=== PATIENT | female | born 1985 | race Native Hawaiian/Other Pacific Islander ===

== ENCOUNTER 2017-04-22 18:02 | Emergency (ER) | payer MEDICAID ==
[2017-04-22] MEDS ORDERED: LIDOCAINE 1%-EPI 1:100000 20 ML MDV SUBQ STA (18:29)
[2017-04-22] MEDS ORDERED: cephALEXin 250 MG CAPSULE PO STA (18:29)
--- NOTE | 2017-04-22 18:30 | ED Physician Documentation ---
History of Present Illness - Stated complaint Stated Complaint: SORE ON THIGH - Chief complaint Chief Complaint: Ext Problem - History obtained from History obtained from: Patient - History of Present Illness Timing: Other (This is a 31-year-old woman with type 2 diabetes, not currently on medications because she is new to the area and does not have a doctor, in the past she was on metformin 1000 mg 3 times a day and Levemir on a sliding scale. 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 : None HEENT: None Psych: None Derm: Other - Past Surgical History /CALCINER OPERATOR: Other - Present Medications Home Medications: Ambulatory Orders Medication Instructions Recorded Confirmed Clindamycin [Cleocin] 300 mg PO Q6H 10 Days capsule 04/22/17 Insulin Detemir [Levemir Flextouch] 1 unit SQ ACHS #1 insuln.pen 04/22/17 Metformin HCl [Metformin HCl ER] 1,000 mg PO TID #90 tab.er.24 04/22/17 - Allergies Allergies/Adverse Reactions: Allergies Allergy/AdvReac Type Severity Reaction Status Date / Time No Known Drug Allergies Allergy Verified 04/22/17 18:17 - Social History Does the pt smoke?: Yes Smoking Status: Current every day smoker Does the pt drink ETOH?: Yes Does the pt have substance abuse?: No - Immunizations Immunizations are current?: No - POLST Patient has POLST: No PD ED PE NORMAL - Vitals Vital signs reviewed: Yes - General General: Alert and oriented X 3, No acute distress - Derm Derm: Other (There is an infected cyst measuring 2 x 3 cm to the medial right thigh with mild overlying cellulitis and tenderness.) - Neuro Neuro: Alert and oriented X 3, Normal speech - Psych Psych: Normal mood, Normal affect Results - Vitals Vitals: Vital Signs - 24 hr 04/22/17 04/22/17 18:13 19:17 Temperature 36.2 C L Heart Rate 102 H 97 Respiratory 15 14 Rate Blood Pressure 145/96 H 126/82 H O2 Saturation 96 98 Oxygen O2 Source Room air - Labs Labs: Microbiology 04/22/17 19:00 Wound Culture - Preliminary Abscess Laboratory Tests 04/22/17 19:08 POC Whole Bld Glucose 386 H Procedures - Abscess I&D (location) R thigh Preparation: Alcohol, Lidocaine 1% Incision: Incised with scalpel, Purulent drainage, Loculations broken, Packed, Culture obtained Other: Pt tolerated well, Dressing applied, Antibiotic prescribed PD MEDICAL DECISION MAKING - ED course ED course: 31-year-old woman with uncontrolled diabetes and abscess to the thigh that was incised and drained and she is placed on clindamycin. She was given refills for her prior diabetes medications given that she does not have a local doctor for primary care follow-up for diabetic management was advised. Departure - Departure Disposition: 01 Home, Self Care Clinical Impression: Abscess Condition: Good Record reviewed to determine appropriate education?: Yes Instructions: ED Abscess IandD Prescriptions: Clindamycin [Cleocin] 300 mg PO Q6H 10 Days capsule Insulin Detemir [Levemir Flextouch] 1 unit SQ ACHS #1 insuln.pen Metformin HCl [Metformin HCl ER] 1,000 mg PO TID #90 tab.er.24 Comments: Return in 2 days for packing removal and wound check. Sooner if worse. Your blood pressure was elevated today on check into the emergency department. This does not mean that you have hypertension, it is a common phenomenon to come to the emergency department and have elevated blood pressure. I recommend that you see your primary care physician within the week to have it rechecked when you are feeling better. Forms: Activity restrictions Discharge Date/Time: 04/22/17 19:25
[2017-04-22] MEDS ORDERED: CLINDAMYCIN 150 MG CAPSULE PO STA (18:52)
[2017-04-22 19:18] VITALS: BP 126/82
== END 2017-04-22 19:25 | disposition home or self-care (01) ==
LOC: ED 18:02
DX: L02.415 Cutaneous abscess of right lower limb (principal); L03.115 Cellulitis of right lower limb; E11.9 Type 2 diabetes mellitus without complications; R03.0 Elevated blood-pressure reading, without diagnosis of hypertension; F17.200 Nicotine dependence, unspecified, uncomplicated
CPT/HCPCS: 10060; 87070; 87181; 87205; 99283; A9270; 27301; 29505

== ENCOUNTER 2017-06-04 09:15 | Outpatient (CLI) | payer MEDICAID ==
[2017-06-04 09:49] LABS: BASOPHILS # (AUTO) 0.1 10^3/uL (0.0-0.1); EOSINOPHILS # (AUTO) 0.4 10^3/uL (0.0-0.7); EOSINOPHILS % (AUTO) 3.9 %; HGB - HEMOGLOBIN 15.3 g/dL (12.0-16.0); LYMPHOCYTES # (AUTO) 2.4 10^3/uL (1.5-3.5); LYMPHOCYTES % (AUTO) 25.1 %; MEAN CORPUSCULAR HEMOGLOBIN 26.8 pg (27.0-31.0); MEAN CORPUSCULAR HGB CONC 33.5 g/dL (32.0-36.0); MEAN CORPUSCULAR VOLUME 80.1 fL (81.0-99.0); MEAN PLATELET VOLUME 8.5 fL (7.9-10.8); MONOCYTES # (AUTO) 0.5 10^3/uL (0.0-1.0); MONOCYTES % (AUTO) 5.4 %; NEUTROPHILS # (AUTO) 6.3 10^3/uL (1.5-6.6); NEUTROPHILS % (AUTO) 64.6 %; PLT - PLATELET COUNT 309 10^3/uL (130-450); RED BLOOD COUNT 5.71 10^6/uL (4.20-5.40); RED CELL DISTRIBUTION WIDTH 13.4 % (12.0-15.0); WHITE BLOOD COUNT 9.7 x10^3/uL (4.8-10.8)
[2017-06-04 10:09] LABS: ALBUMIN 3.8 g/dL (3.2-5.5); BILIRUBIN,TOTAL 0.4 mg/dL (0.2-1.0); CALCIUM 8.5 mg/dL (8.5-10.3); CREATININE 0.6 mg/dL (0.4-1.0); TOTAL PROTEIN 7.8 g/dL (6.7-8.2)
[2017-06-04 10:21] LABS: HB2 TOTAL 16.8 g/dL; HEMOGLOBIN A1C 1.8 g/dL
[2017-06-04 10:40] LABS: THYROID STIMULATING HORMONE 1.46 uIU/mL (0.34-5.60)
[2017-06-04 11:10] LABS: FOLLICLE STIMULATING HORMONE 8.78 mIU/mL
[2017-06-04 11:11] LABS: LUTEINIZING HORMONE 6.08 mIU/mL
== END 2017-06-04 09:16 | disposition home or self-care (01) ==
LOC: LAB 09:15
PROVIDERS: ATTEND Registered Nurse
DX: E11.9 Type 2 diabetes mellitus without complications (principal); Z31.89 Encounter for other procreative management
CPT/HCPCS: 36415; 80053; 81599; 82627; 82670; 83001; 83002; 83036; 84443; 85025

== ENCOUNTER 2017-06-09 08:00 | Outpatient (CLI) | payer MEDICAID ==
[2017-06-10 11:30] LABS: TOTAL VOLUME 24HRS,URINE 1250 mL
[2017-06-10 11:43] LABS: TOTAL PROTEIN,URINE TIMED < 6 mg/dL
== END 2017-06-09 23:59 | disposition home or self-care (01) ==
LOC: LAB.R 08:00
PROVIDERS: ATTEND Registered Nurse
DX: E11.9 Type 2 diabetes mellitus without complications (principal); Z31.89 Encounter for other procreative management
CPT/HCPCS: 84156

== ENCOUNTER 2017-06-16 18:34 | Emergency (ER) | payer MEDICAID ==
--- NOTE | 2017-06-16 19:55 | ED Physician Documentation ---
History of Present Illness - Stated complaint Stated Complaint: BACK PAIN - Chief complaint Chief Complaint: Back Pain - History obtained from History obtained from: Patient - History of Present Illness Timing: How many weeks ago (1) Pain level max: 10 Pain level now: 10 Improved by: nothing Worsened by: urination - Additonal information Additional information: cough, congestion for 1 week. Lower abd pain starting yesterday. Also low back pain. Has a L sided headache for 1 week as well. Took theraflu without relief. Has been on provera for 10 days for irregular menses. states has had dysuria and frequency as well. States no nausea or vomiting. No vaginal bleeding, discharge. No changes in sexual partners. Review of Systems Ten Systems: 10 systems reviewed and negative Constitutional: reports: Fever (subjective), Chills Throat: denies: Oral lesions / sores Cardiac: denies: Chest pain / pressure GI: denies: Vomiting, Hematemesis, Bloody / black stool : denies: Discharge Skin: denies: Rash Musculoskeletal: reports: Back pain (mid back pain, aching, dull). 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: Other - Present Medications Home Medications: Ambulatory Orders Medication Instructions Recorded Confirmed Metformin HCl [Metformin HCl ER] 1,000 mg PO TID #90 tab.er.24 04/22/17 Cefpodoxime Proxetil 200 mg PO BID #20 tablet 06/16/17 Hydrocodone/Acetaminophen 1 - 2 each PO Q6H PRN #14 tablet 06/16/17 [Hydrocodon-Acetaminophen 5-325] Ondansetron Odt [Zofran] 4 mg TL Q6H PRN #10 tablet 06/16/17 Spironolactone 50 mg PO 06/16/17 - Allergies Allergies/Adverse Reactions: Allergies Allergy/AdvReac Type Severity Reaction Status Date / Time No Known Drug Allergies Allergy Verified 06/16/17 18:42 - Social History Does the pt smoke?: Yes Smoking Status: Current every day smoker Does the pt drink ETOH?: Yes Does the pt have substance abuse?: No - Immunizations Immunizations are current?: No - POLST Patient has POLST: No PD ED PE NORMAL - Vitals Vital signs reviewed: Yes - General General: Alert and oriented X 3, No acute distress, Well developed/nourished - HEENT HEENT: PERRL, Ears normal, Moist mucous membranes, Pharynx benign - Neck Neck: Supple, no meningeal sign - Cardiac Cardiac: RRR, Strong equal pulses - Respiratory Respiratory: No respiratory distress, Clear bilaterally - Abdomen Abdomen: Soft, Non tender, Non distended - Back Back: No spinal TTP, Other (mild B CVAT) - Derm Derm: Warm and dry, No rash - Extremities Extremities: No edema - Neuro Neuro: Alert and oriented X 3 - Psych Psych: Normal mood, Normal affect Results - Vitals Vitals: Vital Signs - 24 hr 06/16/17 06/16/17 06/16/17 18:40 19:30 20:19 Temperature 36.6 C 37.3 C Heart Rate 99 94 Respiratory 16 15 Rate Blood Pressure 105/72 120/77 O2 Saturation 97 96 06/16/17 06/16/17 06/16/17 20:20 20:41 21:20 Temperature 37.1 C 36.9 C Heart Rate 94 97 87 Respiratory 16 16 16 Rate Blood Pressure 120/77 121/81 H 120/80 O2 Saturation 96 95 100 Oxygen O2 Source Room air - Labs Labs: Laboratory Tests 06/16/17 06/16/17 06/16/17 18:44 20:04 20:12 WBC 9.7 RBC 5.71 H Hgb 15.0 Hct 45.7 MCV 79.9 L MCH 26.2 L MCHC 32.8 RDW 13.8 Plt Count 301 MPV 8.4 Neut # 7.4 H Lymph # 1.5 [place] # 0.7 Eos # 0.0 Baso # 0.1 Absolute Nucleated RBC 0.00 Nucleated RBC % 0.1 Sodium Potassium Chloride Carbon Dioxide Anion Gap BUN Creatinine Estimated GFR (MDRD) Glucose Calcium Total Bilirubin AST ALT Alkaline Phosphatase Total Protein Albumin Globulin Albumin/Globulin Ratio Lipase Urine Color YELLOW Urine Clarity SL. CLOUDY Urine pH 6.0 Ur Specific [place] 1.015 Urine Protein TRACE Urine Glucose (UA) 250 H Urine Ketones TRACE Urine Occult Blood MODERATE H Urine Nitrite POSITIVE H Urine Bilirubin NEGATIVE Urine Urobilinogen 1 (NORMAL) Ur Leukocyte Esterase SMALL H Urine RBC 0-5 Urine WBC >25 H Ur Squamous Epith Cells MOD Squamous H Urine Bacteria Moderate H Ur Microscopic Review INDICATED Urine Culture Comments NOT INDICATED Urine HCG, Qual NEGATIVE Influenza A (Rapid) Negative Influenza B (Rapid) Negative Influenza Types A,B Ag - 06/16/17 20:12 WBC RBC Hgb Hct MCV MCH MCHC RDW Plt Count MPV Neut # Lymph # [place] # Eos # Baso # Absolute Nucleated RBC Nucleated RBC % Sodium 132 L Potassium 3.7 Chloride 97 L Carbon Dioxide 24 Anion Gap 11.0 BUN 11 Creatinine 0.8 Estimated GFR (MDRD) 83 L Glucose 209 H Calcium 9.1 Total Bilirubin 0.4 AST 15 ALT 15 Alkaline Phosphatase 67 Total Protein 8.7 H Albumin 4.0 Globulin 4.7 H Albumin/Globulin Ratio 0.9 L Lipase 10 L Urine Color Urine Clarity Urine pH Ur Specific [place] Urine Protein Urine Glucose (UA) Urine Ketones Urine Occult Blood Urine Nitrite Urine Bilirubin Urine Urobilinogen Ur Leukocyte Esterase Urine RBC Urine WBC Ur Squamous Epith Cells Urine Bacteria Ur Microscopic Review Urine Culture Comments Urine HCG, Qual Influenza A (Rapid) Influenza B (Rapid) Influenza Types A,B Ag PD MEDICAL DECISION MAKING - ED course Complexity details: reviewed results, re-evaluated patient, considered differential, d/w patient ED course: Patient is a 31-year-old female who presents to the emergency department with what appears to be pyelonephritis. She is given IV Rocephin and IV fluids. Feels better. Tolerating p.o. without difficulty. Is well-appearing, nontoxic. Will place on oral antibiotics and see how she progresses over the next few days. She will return if she worsens. No evidence of epidural abscess. No evidence of sepsis. Patient counseled regarding signs and symptoms for which I believe and urgent re-evaluation would be necessary. Patient with good understanding of and agreement to plan and is comfortable going home at this time This document was made in part using voice recognition software. While efforts are made to proofread this document, sound alike and grammatical errors may occur. Departure - Departure Disposition: 01 Home, Self Care Clinical Impression: Pyelonephritis Condition: Good Instructions: ED Kidney Infec Female Follow-Up: your,doctor in 1 week [Other] Prescriptions: Cefpodoxime Proxetil 200 mg PO BID #20 tablet Hydrocodone/Acetaminophen [Hydrocodon-Acetaminophen 5-325] 1 - 2 each PO Q6H PRN #14 tablet PRN Reason: pain Ondansetron Odt [Zofran] 4 mg TL Q6H PRN #10 tablet PRN Reason: Nausea / Vomiting Comments: Take all antibiotics until gone. Return if you worsen. Do not drink alcohol or drive while on narcotic pain medicine. Note that many narcotic pain relievers also contain tylenol/acetaminophen. Please ensure that your total dose of acetaminophen from all sources does not exceed 3 grams (3000mg) per day. You may constipated on this medication, take a stool softener such as "Colace" twice a day while you are on it. Also recommend a [id number] laxative such as senna or MiraLAX any day that you do not have a bowel movement. If you received narcotic pain medication in the emergency department, do not drive or operate machinery for the next 24 hours. Forms: Activity restrictions Discharge Date/Time: 06/16/17 21:20
[2017-06-16] MEDS ORDERED: HYDROmorphone 1 MG/ML SYRINGE IVP STA (19:59)
[2017-06-16] MEDS ORDERED: SODIUM CHLORIDE 0.9% 1,000 ML IV ONE (19:59)
[2017-06-16 20:16] LABS: BASOPHILS # (AUTO) 0.1 10^3/uL (0.0-0.1); BASOPHILS % (AUTO) 0.6 %; LYMPHOCYTES # (AUTO) 1.5 10^3/uL (1.5-3.5); LYMPHOCYTES % (AUTO) 15.7 %; MEAN CORPUSCULAR HEMOGLOBIN 26.2 pg (27.0-31.0); MEAN CORPUSCULAR HGB CONC 32.8 g/dL (32.0-36.0); MEAN CORPUSCULAR VOLUME 79.9 fL (81.0-99.0); MEAN PLATELET VOLUME 8.4 fL (7.9-10.8); MONOCYTES # (AUTO) 0.7 10^3/uL (0.0-1.0); MONOCYTES % (AUTO) 7.5 %; NEUTROPHILS # (AUTO) 7.4 10^3/uL (1.5-6.6); NEUTROPHILS % (AUTO) 76.2 %; PLT - PLATELET COUNT 301 10^3/uL (130-450); RED BLOOD COUNT 5.71 10^6/uL (4.20-5.40); RED CELL DISTRIBUTION WIDTH 13.8 % (12.0-15.0); WHITE BLOOD COUNT 9.7 x10^3/uL (4.8-10.8)
[2017-06-16 20:18] LABS: BILIRUBIN,URINE NEGATIVE (NEGATIVE); GLUCOSE, URINE (UA) 250 mg/dL (NEGATIVE); KETONES,URINE (UA) TRACE mg/dL (NEGATIVE); LEUKOCYTE ESTERASE, URINE SMALL (NEGATIVE); NITRITE,URINE POSITIVE (NEGATIVE); OCCULT BLOOD,URINE MODERATE (NEGATIVE); PROTEIN,URINE TRACE mg/dL (NEGATIVE); UROBILINOGEN,URINE 1 (NORMAL) E.U./dL (NORMAL)
[2017-06-16 20:21] LABS: CLARITY,URINE SL. CLOUDY (CLEAR); HCG UR QUAL NEGATIVE
[2017-06-16 20:24] LABS: BACTERIA,URINE Moderate /HPF (None Seen); RBC,URINE 0-5 /HPF (0-5); SQUAMOUS EPITHELIAL CELL,UR MOD Squamous (<= Few)
[2017-06-16] MEDS ORDERED: cefTRIAXone 1 GM VIAL IVP STA (20:26)
[2017-06-16 20:31] LABS: ALBUMIN/GLOBULIN RATIO 0.9 (1.0-2.2); BILIRUBIN,TOTAL 0.4 mg/dL (0.2-1.0); CALCIUM 9.1 mg/dL (8.5-10.3); CREATININE 0.8 mg/dL (0.4-1.0); TOTAL PROTEIN 8.7 g/dL (6.7-8.2)
[2017-06-16 21:21] VITALS: BP 120/80
== END 2017-06-16 21:20 | disposition home or self-care (01) ==
LOC: ED 18:34
DX: N12 Tubulo-interstitial nephritis, not specified as acute or chronic (principal); E11.9 Type 2 diabetes mellitus without complications; Z79.84 Long term (current) use of oral hypoglycemic drugs; F17.200 Nicotine dependence, unspecified, uncomplicated
CPT/HCPCS: 36415; 80053; 81001; 81025; 83690; 85025; 87275; 87276; 96361; 96374; 96375; 99284; J1170; 81003; 87086

== ENCOUNTER 2017-07-15 17:04 | Outpatient (CLI) | payer MEDICAID ==
--- NOTE | 2017-07-16 09:37 | Ultrasound Report ---
PELVIC ULTRASOUND: 07/15/2017 CLINICAL INDICATION: Irregular menstrual cycles, history of ovarian cysts. TECHNIQUE: Transabdominal pelvic ultrasound performed for global evaluation. Transvaginal pelvic ultrasound performed for detailed evaluation. Real-time scanning performed and static images obtained. FINDINGS: The uterus is anteverted, measuring 7.2 x 4.7 x 3.4 cm. The endometrium measures 7 mm. No focal myometrial lesion is present. The right ovary measures 2.4 x 2.2 x 1.2 cm, and is unremarkable. The left ovary measures 4.3 x 3.3 x 3.2 cm, and contains a 3.1 x 2.8 x 2.6 cm simple follicle. No free fluid is present. IMPRESSION: LEFT OVARIAN FOLLICLE. TD: 07/16/2017 09:36
== END 2017-07-15 17:05 | disposition home or self-care (01) ==
LOC: DI 17:04
PROVIDERS: ATTEND Registered Nurse
DX: Z31.89 Encounter for other procreative management (principal)
CPT/HCPCS: 76830; 76856

== ENCOUNTER 2017-07-22 20:59 | Emergency (ER) | payer MEDICAID ==
--- NOTE | 2017-07-22 21:18 | ED Physician Documentation ---
PD HPI ABD PAIN - Stated complaint Stated Complaint: LEFT SIDE BACK/ABD PX - Chief complaint Chief Complaint: Abd Pain - History obtained from History obtained from: Patient - History of Present Illness Timing - onset: Yesterday Timing - details: Gradual onset, Intermittant, Waxing and waning Pain level now: 5 Quality: Pain Location: Other (left flank and left lower back) Radiation: Other (LLQ) Improved by: Other (no ameliorating factors) Worsened by: Other (no exacerbating factors) Associated symptoms: No: Fever, Nausea, Vomiting Recently seen: Emergency Dept (T+R last month from this ED for similar symptoms and tx for pyelonephritis) - Additional information Additional information: c/o waxing and waning left lower back pain that radiates around left flank to LLQ abdomen without inciting/exacerbating/ameliorating factors. This started yesterday, and onset was associated with vaginal bleeding. While the pain has persisted, the vaginal bleeding has not recurred since yesterday. W/U in this ED last month for similar symptoms revealed UA s/o UTI and, given her flank/ back discomfort, was treated for pyelonephritis (discharged from ED). She has followed-up with her doctor and had US performed 07/15 (pelvic/TV), unremarkable (left ovarian follicle). Review of Systems Constitutional: denies: Fever, Chills, Sweats Cardiac: reports: Reviewed and negative Respiratory: reports: Reviewed and negative GI: reports: Abdominal Pain. 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 : None HEENT: None Psych: None Derm: Other - Past Surgical History Past Surgical History: Yes /DIRECTOR WORK: Other - Present Medications Home Medications: Ambulatory Orders Medication Instructions Recorded Confirmed Metformin HCl [Metformin HCl ER] 1,000 mg PO TID #90 tab.er.24 04/22/17 Cefpodoxime Proxetil 200 mg PO BID #20 tablet 06/16/17 Hydrocodone/Acetaminophen 1 - 2 each PO Q6H PRN #14 tablet 06/16/17 [Hydrocodon-Acetaminophen 5-325] Ondansetron Odt [Zofran] 4 mg TL Q6H PRN #10 tablet 06/16/17 Spironolactone 50 mg PO 06/16/17 - Allergies Allergies/Adverse Reactions: Allergies Allergy/AdvReac Type Severity Reaction Status Date / Time No Known Drug Allergies Allergy Verified 07/22/17 21:16 - Social History Does the pt smoke?: Yes Smoking Status: Current every day smoker Does the pt drink ETOH?: Yes Does the pt have substance abuse?: No - Immunizations Immunizations are current?: No - POLST Patient has POLST: No PD ED PE NORMAL - Vitals Vital signs reviewed: Yes - General General: Alert and oriented X 3, No acute distress, Well developed/nourished - Cardiac Cardiac: RRR, No murmur - Respiratory Respiratory: No respiratory distress, Clear bilaterally - Abdomen Abdomen: Normal bowel sounds, Soft, Non tender, Non distended Results - Vitals Vitals: Vital Signs - 24 hr 07/22/17 07/22/17 21:13 23:34 Temperature 36.1 C L Heart Rate 79 87 Respiratory 18 16 Rate Blood Pressure 146/85 H 138/83 H O2 Saturation 100 97 Oxygen O2 Source Room air - Labs Labs: Laboratory Tests 07/22/17 07/22/17 07/22/17 21:15 21:15 21:26 WBC 9.4 RBC 5.22 Hgb 13.9 Hct 42.7 MCV 81.9 MCH 26.6 L MCHC 32.5 RDW 14.4 Plt Count 352 MPV 8.6 Neut # 5.6 Lymph # 2.9 [place] # 0.5 Eos # 0.4 Baso # 0.1 Absolute Nucleated RBC 0.00 Nucleated RBC % 0.0 Sodium Potassium Chloride Carbon Dioxide Anion Gap BUN Creatinine Estimated GFR (MDRD) Glucose POC Whole Bld Glucose Calcium Urine Color YELLOW Urine Clarity CLEAR Urine pH 5.5 Ur Specific [place] 1.015 1.015 Urine Protein NEGATIVE Urine Glucose (UA) >=1000 H Urine Ketones TRACE Urine Occult Blood NEGATIVE Urine Nitrite NEGATIVE Urine Bilirubin NEGATIVE Urine Urobilinogen 0.2 (NORMAL) Ur Leukocyte Esterase NEGATIVE Ur Microscopic Review NOT INDICATED Urine Culture Comments NOT INDICATED Urine HCG, Qual NEGATIVE 07/22/17 07/22/17 21:26 23:16 WBC RBC Hgb Hct MCV MCH MCHC RDW Plt Count MPV Neut # Lymph # [place] # Eos # Baso # Absolute Nucleated RBC Nucleated RBC % Sodium 131 L Potassium 3.7 Chloride 99 L Carbon Dioxide 23 Anion Gap 9.0 BUN 13 Creatinine 0.8 Estimated GFR (MDRD) 83 L Glucose 378 H POC Whole Bld Glucose 333 H Calcium 9.0 Urine Color Urine Clarity Urine pH Ur Specific [place] Urine Protein Urine Glucose (UA) Urine Ketones Urine Occult Blood Urine Nitrite Urine Bilirubin Urine Urobilinogen Ur Leukocyte Esterase Ur Microscopic Review Urine Culture Comments Urine HCG, Qual PD MEDICAL DECISION MAKING - ED course Complexity details: reviewed results, re-evaluated patient, considered differential, d/w patient Departure - Departure Disposition: Home, Self Care Clinical Impression: Hyperglycemia Abdominal pain Qualifiers: Abdominal location: left lower quadrant Qualified Code(s): R10.32 - Left lower quadrant pain Condition: Good Instructions: ED Abdominal Pain Unkn Cause, ED Hyperglycemia Diabetic, ED Flank Pain Uncertain Cause Follow-Up: [facility] [Provider Group] [facility] [Provider Group] Forms: Activity restrictions Discharge Date/Time: 07/22/17 23:35
[2017-07-22 21:25] LABS: BILIRUBIN,URINE NEGATIVE (NEGATIVE); GLUCOSE, URINE (UA) >=1000 mg/dL (NEGATIVE); KETONES,URINE (UA) TRACE mg/dL (NEGATIVE); LEUKOCYTE ESTERASE, URINE NEGATIVE (NEGATIVE); NITRITE,URINE NEGATIVE (NEGATIVE); OCCULT BLOOD,URINE NEGATIVE (NEGATIVE); PH,URINE 5.5 PH (5.0-7.5); PROTEIN,URINE NEGATIVE (NEGATIVE); UROBILINOGEN,URINE 0.2 (NORMAL) E.U./dL (NORMAL)
[2017-07-22 21:28] LABS: CLARITY,URINE CLEAR (CLEAR)
[2017-07-22] MEDS ORDERED: KETOROLAC 60 MG/2 ML VIAL IVP STA (21:45)
[2017-07-22 22:00] LABS: BASOPHILS # (AUTO) 0.1 10^3/uL (0.0-0.1); BASOPHILS % (AUTO) 0.7 %; EOSINOPHILS # (AUTO) 0.4 10^3/uL (0.0-0.7); EOSINOPHILS % (AUTO) 3.8 %; HGB - HEMOGLOBIN 13.9 g/dL (12.0-16.0); LYMPHOCYTES # (AUTO) 2.9 10^3/uL (1.5-3.5); LYMPHOCYTES % (AUTO) 30.9 %; MEAN CORPUSCULAR HEMOGLOBIN 26.6 pg (27.0-31.0); MEAN CORPUSCULAR HGB CONC 32.5 g/dL (32.0-36.0); MEAN CORPUSCULAR VOLUME 81.9 fL (81.0-99.0); MEAN PLATELET VOLUME 8.6 fL (7.9-10.8); MONOCYTES # (AUTO) 0.5 10^3/uL (0.0-1.0); MONOCYTES % (AUTO) 5.1 %; NEUTROPHILS # (AUTO) 5.6 10^3/uL (1.5-6.6); NEUTROPHILS % (AUTO) 59.5 %; PLT - PLATELET COUNT 352 10^3/uL (130-450); RED BLOOD COUNT 5.22 10^6/uL (4.20-5.40); RED CELL DISTRIBUTION WIDTH 14.4 % (12.0-15.0); WHITE BLOOD COUNT 9.4 x10^3/uL (4.8-10.8)
[2017-07-22 22:05] LABS: HCG UR QUAL NEGATIVE
[2017-07-22 22:10] LABS: CREATININE 0.8 mg/dL (0.4-1.0)
[2017-07-22] MEDS ORDERED: SODIUM CHLORIDE 0.9% 1,000 ML IV STA (22:12)
[2017-07-22 23:34] VITALS: BP 138/83
== END 2017-07-22 23:35 | disposition home or self-care (01) ==
LOC: ED 20:59
DX: E11.65 Type 2 diabetes mellitus with hyperglycemia (principal); R10.32 Left lower quadrant pain; F17.200 Nicotine dependence, unspecified, uncomplicated; Z79.84 Long term (current) use of oral hypoglycemic drugs
CPT/HCPCS: 36415; 80048; 81001; 81003; 81025; 85025; 87086; 96361; 96374; 99283; 99284

== ENCOUNTER 2017-09-15 19:41 | Emergency (ER) | payer MEDICAID ==
[2017-09-15 20:17] LABS: BASOPHILS % (AUTO) 1.1 %; EOSINOPHILS % (AUTO) 0.3 %; HGB - HEMOGLOBIN 14.3 g/dL (12.0-16.0); LYMPHOCYTES # (AUTO) 1.2 10^3/uL (1.5-3.5); LYMPHOCYTES % (AUTO) 39.7 %; MEAN CORPUSCULAR HEMOGLOBIN 27.6 pg (27.0-31.0); MEAN CORPUSCULAR HGB CONC 33.7 g/dL (32.0-36.0); MEAN CORPUSCULAR VOLUME 81.8 fL (81.0-99.0); MEAN PLATELET VOLUME 8.5 fL (7.9-10.8); MONOCYTES # (AUTO) 0.4 10^3/uL (0.0-1.0); NEUTROPHILS # (AUTO) 1.4 10^3/uL (1.5-6.6); NEUTROPHILS % (AUTO) 46.9 %; PLT - PLATELET COUNT 202 10^3/uL (130-450); RED BLOOD COUNT 5.19 10^6/uL (4.20-5.40); RED CELL DISTRIBUTION WIDTH 14.1 % (12.0-15.0)
[2017-09-15 20:27] LABS: ALBUMIN 3.6 g/dL (3.2-5.5); ALBUMIN/GLOBULIN RATIO 0.8 (1.0-2.2); BILIRUBIN,TOTAL 0.7 mg/dL (0.2-1.0); CALCIUM 8.5 mg/dL (8.5-10.3); CREATININE 0.8 mg/dL (0.4-1.0)
[2017-09-15 20:32] LABS: GLUCOSE, URINE (UA) >=1000 mg/dL (NEGATIVE); KETONES,URINE (UA) TRACE mg/dL (NEGATIVE); LEUKOCYTE ESTERASE, URINE NEGATIVE (NEGATIVE); NITRITE,URINE NEGATIVE (NEGATIVE); OCCULT BLOOD,URINE NEGATIVE (NEGATIVE); PROTEIN,URINE TRACE mg/dL (NEGATIVE); UROBILINOGEN,URINE 1 (NORMAL) E.U./dL (NORMAL)
[2017-09-15 20:39] LABS: BILIRUBIN,URINE NEGATIVE (NEGATIVE); CLARITY,URINE CLEAR (CLEAR); HCG UR QUAL NEGATIVE; ICTOTEST,URINE NEGATIVE
[2017-09-15] MEDS ORDERED: SODIUM CHLORIDE 0.9% 1,000 ML IV ONE (20:41)
--- NOTE | 2017-09-15 20:47 | ED Physician Documentation ---
History of Present Illness - Stated complaint Stated Complaint: BODY ACHE - Chief complaint Chief Complaint: General - History obtained from History obtained from: Patient - History of Present Illness Timing: How many weeks ago (2) - Additonal information Additional information: Patient is a 31 year old female with a history of diabetes who is presenting to the emergency department for back pain and generally not feeling well. Patient states that the symptoms have been going on for the last 2 weeks. 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 : None HEENT: None Psych: None Derm: Other - Past Surgical History Past Surgical History: Yes /DYE HOUSE SUPERVISOR: Other - Present Medications Home Medications: Ambulatory Orders Medication Instructions Recorded Confirmed Home Medications Unobtainable 09/15/17 09/15/17 [HOME MEDICATIONS UNOBTAINABLE] - Allergies Allergies/Adverse Reactions: Allergies Allergy/AdvReac Type Severity Reaction Status Date / Time No Known Drug Allergies Allergy Verified 09/15/17 19:51 - Social History Does the pt smoke?: Yes Smoking Status: Current every day smoker Does the pt drink ETOH?: Yes Does the pt have substance abuse?: No - Immunizations Immunizations are current?: No - POLST Patient has POLST: No PD ED PE NORMAL - Vitals Vital signs reviewed: Yes - General General: Alert and oriented X 3 - HEENT HEENT: Atraumatic, PERRL - Neck Neck: Supple, no meningeal sign - Cardiac Cardiac: RRR - Respiratory Respiratory: No respiratory distress - Abdomen Abdomen: Soft, Non tender, Non distended PD ED PE EXPANDED - HEENT HEENT: Dry mucous membranes - Back Back: Soft tissue tenderness (bilateral lower back tenderness) Results - Vitals Vitals: Vital Signs - 24 hr 09/15/17 09/15/17 19:48 21:55 Temperature 35.8 C L 35.9 C L Heart Rate 92 78 Respiratory 18 18 Rate Blood Pressure 120/77 102/51 L O2 Saturation 97 99 Oxygen O2 Source Room air - Labs Labs: Laboratory Tests 09/15/17 09/15/17 09/15/17 20:09 20:09 20:25 WBC 3.0 L RBC 5.19 Hgb 14.3 Hct 42.4 MCV 81.8 MCH 27.6 MCHC 33.7 RDW 14.1 Plt Count 202 MPV 8.5 Neut # (Auto) 1.4 L Lymph # (Auto) 1.2 L [place] # (Auto) 0.4 Eos # (Auto) 0.0 Baso # (Auto) 0.0 Absolute Nucleated RBC 0.01 Nucleated RBC % 0.2 Manual Slide Review Indicated Platelet Estimate NORMAL (130-450,000) Platelet Morphology 1+ GIANT PLATELETS Sodium 129 L Potassium 3.4 L Chloride 98 L Carbon Dioxide 22 Anion Gap 9.0 BUN 14 Creatinine 0.8 Estimated GFR (MDRD) 83 L Glucose 273 H Calcium 8.5 Total Bilirubin 0.7 AST 53 H ALT 50 Alkaline Phosphatase 72 Total Protein 8.0 Albumin 3.6 Globulin 4.4 H Albumin/Globulin Ratio 0.8 L Lipase 25 Urine Color DARK YELLOW Urine Clarity CLEAR Urine pH 6.0 Ur Specific [place] 1.025 Urine Protein TRACE Urine Glucose (UA) >=1000 H Urine Ketones TRACE Urine Occult Blood NEGATIVE Urine Nitrite NEGATIVE Urine Bilirubin NEGATIVE Urine Urobilinogen 1 (NORMAL) Ur Leukocyte Esterase NEGATIVE Ur Microscopic Review NOT INDICATED Urine Culture Comments NOT INDICATED Urine HCG, Qual NEGATIVE PD MEDICAL DECISION MAKING - ED course Complexity details: reviewed old records, reviewed results, re-evaluated patient , considered differential, d/w patient ED course: Patient was seen and examined at bedside. IV access was gained and labs were drawn. urine was collected. patient was found to be mild hyperglycemia and low sodium, even when corrected is slightly low. Patient was treated with a fluid bolus. Patient's other diagnostics were within normal limits. Patient was educated on closer glycemic control. patient required no further work up and was stable for discharge with outpatient follow up. - Sepsis Event Vital Signs: Vital Signs - 24 hr 09/15/17 09/15/17 19:48 21:55 Temperature 35.8 C L 35.9 C L Heart Rate 92 78 Respiratory 18 18 Rate Blood Pressure 120/77 102/51 L O2 Saturation 97 99 Oxygen O2 Source Room air Departure - Departure Disposition: Home, Self Care Clinical Impression: Hyperglycemia Condition: Good Instructions: Diabetes Healthy Meals Follow-Up: primary,care provider [Other] - Within 1 week Comments: Your diagnostics today showed no sign of urinary tract or kidney infection. You were slightly dehydrated likely secondary to uncontrolled blood glucose. It is important that you work with your doctor for tighter glyceic control. You should start by low carb, low sugar diet and increase the amount of exercise you are doing. You may return to the emergency department at any time for new, worsening or uncontrollable symptoms.
[2017-09-15 20:48] LABS: PLATELET ESTIMATE, MANUAL NORMAL (130-450,000) (NORMAL); PLATELET MORPHOLOGY 1+ GIANT PLATELETS (NORMAL)
[2017-09-15 21:56] VITALS: BP 102/51
== END 2017-09-15 22:05 | disposition home or self-care (01) ==
LOC: ED 19:41
DX: E11.65 Type 2 diabetes mellitus with hyperglycemia (principal); E86.0 Dehydration; K21.9 Gastro-esophageal reflux disease without esophagitis; F17.200 Nicotine dependence, unspecified, uncomplicated
CPT/HCPCS: 36415; 80053; 81001; 81003; 81025; 83690; 85025; 87086; 96360; 99283